=== PATIENT | female | born 1930 | race Caucasian/White ===

== ENCOUNTER → 2016-07-22 | Outpatient (CLI) | payer MEDICARE ==
[~2016-07-22] MED LIST: ALLERGY SHOT; ALPRAZOLAM; ALPRAZOLAM PO; ASPIRIN; BENEFIBER1 PKT PO; COQ10; CRESTOR; DONNATAL TABL16.2 MG; FIORINAL CAPSUL1 CAP PO; FISH OIL; FLEXERIL; FLEXERIL PO; FLONASE16 GM; FOSAMAX; FOSAMAX PO; IMDUR; IMDUR PO; MAG-OXIDE400 MG; NITROGYLCERIN; OMEGA 3 PO; OXAPROZIN600 MG PO; OYSTER CALCIUM500 MG; PAXIL; PAXIL PO; PRAVACHOL PO; PRED FORTE; PREMARIN; PRILOSEC; TAGAMET; TOPROL XL; ZETIA PO; ZYRTEC; ZYRTEC PO; [UNRECOGNIZED DRUG - OTHER]
--- NOTE | ~2016-07-22 | MY29 ---
[facility] A Service of [facility] RADIOLOGY TEXT RESULTS PATIENT: ERIN LORENZO LOCATION: [facility] : 34 UNIT #: [id number] AGE: [address]: Arline Morrell MD SEX: F ORDER DR: [id number] [facility] [address] [place], [place] [address] [id number] O MR#: [id number] Acc #: [id number] NAME: ERIN LORENZO : 1930 SEX: F STUDY DATE/TIME: 07/22/2016 13:57 UNIT: [facility] ROOM: STUDY DESCRIPTION: MY BEVERLEY SCREENING W/ CAD BILAT Attending Physician: Arline Morrell M.D. Referring Physician: Arline Morrell M.D. Ordering Physician: Arline Morrell M.D. Primary Care Physician: Arline Morrell M.D. MEDICAL IMAGING REPORT This report is preliminary unless electronic signature is present EXAM Digital screening mammogram, 07/22/16, [facility]. HISTORY 86-year-old woman, no risk elevation. Prior bilateral breast biopsies. Annual screen. COMPARISON Mammograms date to 02/28/05 with most recent 04/17/15. Diagnostic right mammogram 05/04/15. TECHNIQUE Digital imaging of each breast was completed utilizing screening protocol. The biopsy markers were placed bilateral periareolar locations. Review includes FDA-approved CAD device. FINDINGS Breast parenchyma remains heterogeneous with a small nodular pattern bilaterally. Pacemaker obscures a portion of the upper left breast on the MLO projection. I see no interval occurring mass and no suspicious microcalcifications or architectural deformity. IMPRESSION Benign mammogram. Annual screening recommended. Patients over the age of 40 are entered into a reminder system with target due date for the next mammogram. A result letter will also be sent to the patient. BIRADS: 2 Benign findings. Dictated by... [facility] A Service [facility] RADIOLOGY TEXT RESULTS PATIENT: ERIN LORENZO LOCATION: [facility] : 34 UNIT #: [id number] AGE: [address]: Arline Morrell MD SEX: F ORDER DR: Rom Flores M.D. THIS IS AN ELECTRONICALLY VERIFIED REPORT Rom Flores M.D. at 07/23/2016 8:06 AM DAVE/julianne TD: 07/22/2016 15:33 JOB #: [id number] MEDICAL IMAGING REPORT Page 1 of 1 COPY
== END | disposition home or self-care (01) ==
LOC: CWCC 13:40
DX: Z12.31 Encounter for screening mammogram for malignant neoplasm of breast (principal); Z98.890 Other specified postprocedural states
CPT/HCPCS: G0202